=== PATIENT | female | born 1935 | race African-American/Black ===

== ENCOUNTER 2016-11-06 12:02 | Inpatient (IN) | payer MEDICARE, OTHER ==
[2016-11-06] VITALS (20 sets, daily range): BP systolic 110–141; BP diastolic 69–95
[~2016-11-06] VITALS: Ht 167.6 cm; Wt 77.6 kg
[~2016-11-06 12:02] MED LIST: ALLO300T2 PO; AMLO5TAB88 PO; ATEN-42 PO; TRAM50TA3 PO
[2016-11-06] MEDS ORDERED: SODIUM CHLORIDE 0.9% 1,000 ML IV ONE (12:19)
[2016-11-06 12:45] LABS: BASOPHILS % 0.2 % (0.0-2.0); HEMATOCRIT. 26.5 % (36.0-48.0); HEMOGLOBIN. 8.4 g/dL (12.0-16.0); MEAN CORPUSCULAR HEMOGLOBIN 24.6 pg (28.0-32.0); MEAN CORPUSCULAR VOLUME 77.9 fL (81.0-99.0); MEAN PLATELET VOLUME 7.8 fl (7.4-10.4); MONOCYTES % 7.5 % (2.0-8.0); NEUTROPHILS % 82.3 % (40.0-76.0); PLATELET 74 x1000/uL (130-400); RED BLOOD CELL COUNT 3.41 mill/uL (4.2-5.4); RED CELL DISTRIBUTION WIDTH 19.9 % (11.6-14.6)
[2016-11-06 12:50] LABS: CHLORIDE 104 mEq/L (98-107)
[2016-11-06 12:52] LABS: INR 1.4; PROTHROMBIN TIME 14.7 sec (9.4-11.6)
[2016-11-06 12:59] LABS: CARBON DIOXIDE 30 mEq/L (21-32); ETHANOL BLOOD < 10 mg/dL
[2016-11-06 14:19] LABS: BG BASE EXCESS 2.1 mmol/L (-2.0-2.0); BG DEOXYHEMOGLOBIN 35.8 % (0.0-5.0); BG HCO3 ACT 34.2 mmol/L (22.0-26.0); BG METHEMOGLOBIN 0.5 % (0.0-1.5); BG OXYGEN SATURATION 63.7 % (92.0-98.5); BG OXYHEMOGLOBIN 62.7 % (94.0-97.0); BG PCO2 119.5 mmHg (35.0-45.0); BG PH 7.074 (7.350-7.450); BG PO2 46.4 mmHg (75.0-100.0); BG SAMPLE SITE RIGHT BRACHIAL; BG TOTAL HEMOGLOBIN 9.6 g/dL (12.0-18.0); BG VENT MODE ROOM AIR
[2016-11-06] MEDS ORDERED: ETOMIDATE 2MG/ML 10ML VIAL IV ONE ×2 (14:20→14:45)
[2016-11-06] MEDS ORDERED: SUCCINYLCHOLINE CHLORIDE 200MG/10ML VIAL IV ONE ×2 (14:20→14:45)
[2016-11-06] MEDS ORDERED: METHYLPREDNISOLONE SOD SUCC 125 MG/2 ML VIAL IV ONE (15:00)
[2016-11-06] MEDS ORDERED: PROPOFOL 10MG/ML 100ML 100 ML IV SCH (15:15)
[2016-11-06 15:19] LABS: CLARITY URINE CLOUDY (CLEAR); COLOR URINE YELLOW (YELLOW); GLUCOSE URINE NEGATIVE (NEGATIVE); KETONES URINE NEGATIVE (NEGATIVE); LEUKOCYTE ESTERASE URINE NEGATIVE (NEGATIVE); NITRITE URINE NEGATIVE (NEGATIVE); OCCULT BLOOD URINE 1+ (NEGATIVE); PROTEIN URINE 3+ (NEGATIVE); SPECIFIC GRAVITY URINE 1.018 (1.005-1.030); UROBILINOGEN URINE 0.2 E.U./dL (0.2-1.0)
[2016-11-06 15:44] LABS: *AMPHETAMINES SCREEN URINE NEGATIVE (NEGATIVE); *BARBITURATES SCREEN URINE NEGATIVE (NEGATIVE); *BENZODIAZEPINES SCREEN URINE NEGATIVE (NEGATIVE); *COCAINE SCREEN URINE NEGATIVE (NEGATIVE); CANNABINOID URINE SCREEN NEGATIVE (NEGATIVE); METHADONE URINE SCREEN NEGATIVE (NEGATIVE); OPIATES URINE SCREEN NEGATIVE (NEGATIVE); PHENCYCLIDINE URINE SCREEN NEGATIVE (NEGATIVE)
[2016-11-06 15:51] LABS: BG BASE EXCESS -3.8 mmol/L (-2.0-2.0); BG CARBOXYHEMOGLOBIN 0.5 % (0.5-1.5); BG DEOXYHEMOGLOBIN 0.6 % (0.0-5.0); BG HCO3 ACT 22.9 mmol/L (22.0-26.0); BG METHEMOGLOBIN 0.6 % (0.0-1.5); BG OXYGEN SATURATION 99.4 % (92.0-98.5); BG OXYHEMOGLOBIN 98.3 % (94.0-97.0); BG PH 7.279 (7.350-7.450); BG PO2 234.1 mmHg (75.0-100.0); BG SAMPLE SITE RIGHT BRACHIAL; BG TIDAL VOLUME(mL) 500 mL; BG TOTAL HEMOGLOBIN 9.1 g/dL (12.0-18.0); BG VENT MODE VENT - A/C; BG VENT RATE 16 set
[2016-11-06] MEDS ORDERED: IPRATROPIUM/ALBUTEROL 0.5-3(2.5)MG/3ML NEB HHN PRN (16:30)
[2016-11-06] MEDS ORDERED: GUAIFENESIN 200MG/10ML SUGAR FREE UDC PO PRN (16:45)
[2016-11-06] MEDS ORDERED: CLONIDINE 0.1MG TABLET PO PRN (16:45)
[2016-11-06] MEDS ORDERED: NA PHOS,M-B/NA PHOS,DI-BA ENEMA 118ML PR PRN (16:45)
[2016-11-06] MEDS ORDERED: DIPHENHYDRAMINE 50MG/ML VIAL IV PRN (16:45)
[2016-11-06] MEDS ORDERED: MORPHINE SULFATE 4 MG/ML CPJ (NOT FOR IM USE) IV PRN (16:45)
[2016-11-06] MEDS ORDERED: LORAZEPAM 2MG/ML CPJ IV PRN (16:45)
[2016-11-06] MEDS ORDERED: ACETAMINOPHEN 325MG TABLET PO PRN (16:45)
[2016-11-06] MEDS ORDERED: ONDANSETRON HCL 4MG/2ML VIAL IV PRN (16:45)
[2016-11-06] MEDS ORDERED: MAGNESIUM/ALUMINUM HYDROXIDE/SIMETHICONE 30ML UDC PO PRN (16:45)
[2016-11-06] MEDS ORDERED: IPRATROPIUM/ALBUTEROL 0.5-3(2.5)MG/3ML NEB INH PRN (16:45)
[2016-11-06] MEDS ORDERED: DOCUSATE SODIUM 100MG CAPSULE PO PRN (16:45)
[2016-11-06] MEDS ORDERED: VANCOMYCIN 1 G PREMIX 200 ML IV SCH (16:45)
[2016-11-06] MEDS ORDERED: PIPERACILLIN/TAZ 2.25G PREMIX 50 ML IV NR (17:00)
[2016-11-06] MEDS ORDERED: VANCOMYCIN 1 G PREMIX 200 ML IV NR (17:00)
[2016-11-06] MEDS: DEXT 5%/0.45% NACL 1000ML 1,000 ML IV SCH (17:38)
[2016-11-06 18:17] LABS: VITAMIN B12 SERUM 1406 pg/mL (211-911)
[2016-11-06 18:43] LABS: FOLIC ACID (FOLATE) SERUM > 20.00 ng/mL (>5.38)
[2016-11-06] MEDS ORDERED: PROPOFOL 10MG/ML 100ML 100 ML IV PRN (20:00)
[2016-11-06] MEDS: IPRATROPIUM/ALBUTEROL 0.5-3(2.5)MG/3ML NEB HHN SCH (20:12)
[2016-11-06] MEDS: FUROSEMIDE 40MG/4ML VIAL IVP SCH (20:12)
[2016-11-06] MEDS: BUDESONIDE 0.5MG/2ML NEB HHN SCH (20:12)
[2016-11-06] MEDS ORDERED: VANCOMYCIN 500 MG PREMIX 100 ML IV NR (21:00)
[2016-11-06 23:22] LABS: CREATINE KINASE MB FRACTION 2.4 ng/mL (0.5-3.6); TROPONIN I 0.09 ng/mL (0.00-0.04)
[2016-11-07] VITALS (49 sets, daily range): BP systolic 85–145; BP diastolic 52–91
[2016-11-07] MEDS: IPRATROPIUM/ALBUTEROL 0.5-3(2.5)MG/3ML NEB HHN SCH ×4 (00:12→12:07)
[2016-11-07] MEDS: PIPERACILLIN/TAZ 2.25G PREMIX 50 ML IV SCH ×2 (02:04→10:26)
[2016-11-07 05:57] LABS: TROPONIN I 0.08 ng/mL (0.00-0.04)
[2016-11-07 06:03] LABS: CREATINE KINASE MB FRACTION 1.4 ng/mL (0.5-3.6)
[2016-11-07] MEDS: DEXT 5%/0.45% NACL 1000ML 1,000 ML IV SCH (07:52)
[2016-11-07] MEDS: BUDESONIDE 0.5MG/2ML NEB HHN SCH (08:09)
[2016-11-07] MEDS ORDERED: PANTOPRAZOLE SODIUM 40 MG/VIAL IV SCH (09:00)
[2016-11-07] MEDS ORDERED: ENOXAPARIN 30MG/0.3ML SYR SUBCUT SCH (09:00)
[2016-11-07] MEDS ORDERED: FAMOTIDINE 20MG/2ML VIAL IV SCH (09:00)
[2016-11-07 09:08] LABS: BG BASE EXCESS 2.7 mmol/L (-2.0-2.0); BG CARBOXYHEMOGLOBIN 0.3 % (0.5-1.5); BG DEOXYHEMOGLOBIN 1.9 % (0.0-5.0); BG FRACTION INSPIRED OXYGEN 28; BG HCO3 ACT 26.1 mmol/L (22.0-26.0); BG METHEMOGLOBIN 0.6 % (0.0-1.5); BG OXYGEN SATURATION 98.1 % (92.0-98.5); BG OXYHEMOGLOBIN 97.2 % (94.0-97.0); BG PO2 116.6 mmHg (75.0-100.0); BG SAMPLE SITE RIGHT BRACHIAL; BG TIDAL VOLUME(mL) 500 mL; BG TOTAL HEMOGLOBIN 8.5 g/dL (12.0-18.0); BG VENT MODE VENT - A/C; BG VENT RATE 16 set
[2016-11-07] MEDS: FUROSEMIDE 40MG/4ML VIAL IVP SCH (09:10)
[2016-11-07 09:18] LABS: HEMATOCRIT. 25.2 % (36.0-48.0); HEMOGLOBIN. 7.9 g/dL (12.0-16.0); MEAN CORPUSCULAR HEMOGLOBIN 24.5 pg (28.0-32.0); MEAN CORPUSCULAR VOLUME 78.6 fL (81.0-99.0); MEAN PLATELET VOLUME 8.8 fl (7.4-10.4); PLATELET 66 x1000/uL (130-400); RED CELL DISTRIBUTION WIDTH 20.3 % (11.6-14.6)
[2016-11-07 09:29] LABS: CARBON DIOXIDE 22 mEq/L (21-32); CHLORIDE 107 mEq/L (98-107)
[2016-11-07 10:26] LABS: PLATELET ESTIMATE DECREASED
[2016-11-07] MEDS ORDERED: LORAZEPAM 2MG/ML CPJ IV PRN (13:15)
[2016-11-07] MEDS ORDERED: MORPHINE SULFATE 250 MG in DEXT 5% WATER 240 ML IV PRN (14:15)
[2016-11-08] VITALS (17 sets, daily range): BP systolic 45–107; BP diastolic 30–69
== END 2016-11-08 08:53 | disposition expired | DRG 871 ==
LOC: ER 12:02 → MICUNO 14:54 → SUPCPDRO 16:24 → ENRESERV 18:05
PROVIDERS: ADMIT Internal Medicine; ATTEND Internal Medicine
PROC: 0BH17EZ Insertion of Endotracheal Airway into Trachea, Via Natural or Artificial Opening (ICD-10-PCS; principal; 2016-11-06)
PROC: 5A1945Z Respiratory Ventilation, 24-96 Consecutive Hours (ICD-10-PCS; 2016-11-06)
PROC: 0BP1XDZ Removal of Intraluminal Device from Trachea, External Approach (ICD-10-PCS; 2016-11-08)
DX: A41.9 Sepsis, unspecified organism (principal); I50.33 Acute on chronic diastolic (congestive) heart failure; J96.21 Acute and chronic respiratory failure with hypoxia; N17.0 Acute kidney failure with tubular necrosis; J18.9 Pneumonia, unspecified organism; D68.9 Coagulation defect, unspecified; N28.1 Cyst of kidney, acquired; D69.6 Thrombocytopenia, unspecified; I11.0 Hypertensive heart disease with heart failure; J96.22 Acute and chronic respiratory failure with hypercapnia; J44.0 Chronic obstructive pulmonary disease with (acute) lower respiratory infection; J44.1 Chronic obstructive pulmonary disease with (acute) exacerbation; J98.11 Atelectasis; D63.8 Anemia in other chronic diseases classified elsewhere; I48.91 Unspecified atrial fibrillation; E78.5 Hyperlipidemia, unspecified; E78.00 Pure hypercholesterolemia, unspecified; M10.9 Gout, unspecified; Z51.5 Encounter for palliative care; Z66 Do not resuscitate; Z90.49 Acquired absence of other specified parts of digestive tract; Z85.05 Personal history of malignant neoplasm of liver; Z86.73 Personal history of transient ischemic attack (TIA), and cerebral infarction without residual deficits; Z88.6 Allergy status to analgesic agent; Z88.8 Allergy status to other drugs, medicaments and biological substances
CPT/HCPCS: 31500; 36415; 36600; 70450; 71010; 74176; 80053; 80061; 80305; 81001; 82375; 82550; 82553; 82607; 82746; 82805; 83036; 83540; 83550; 83605; 83880; 84478; 84484; 85025; 85610; 87040; 87086; 93005; 93306; 93970; 94003; 94640; 94660; 96361; 96365; 96367; 96375; 99291; G0482; J0330; J1940; J2543; J2704; J2930; J3370; J3490; J7030; J7620; J7626; A4315